=== PATIENT | female | born 1955 | race Caucasian/White ===

== ENCOUNTER 2016-06-22 15:50 | Emergency (ER) | payer OTHER ==
[~2016-06-22] VITALS: Ht 165.1 cm; Wt 52.3 kg
[~2016-06-22 15:50] MED LIST: HYDROCODONE/APAP
[2016-06-22 15:51] VITALS: BP 166/89; PULSE 99; TEMP 98.4
[2016-06-22] MEDS ORDERED: PROZAC 10MG10 MG (15:55)
[2016-06-22] MEDS ORDERED: NORCO 325 MG-51 TAB PO (15:55)
[2016-06-22] MEDS ORDERED: AMOXICILLIN 50500 MG PO (16:20)
== END 2016-06-22 16:31 | disposition home or self-care (01) ==
LOC: COL.ER 15:50
DX: L03.211 Cellulitis of face (principal)

== ENCOUNTER → 2016-07-12 | Outpatient (CLI) | payer OTHER ==
[~2016-07-12] MED LIST changes: +AMOXICILLIN 50500 MG PO; +NORCO 325 MG-51 TAB PO; +PROZAC 10MG10 MG
[2016-07-12 13:25] LABS: HEMOGLOBIN 14.6 g/dl (12.5-16.0)
[2016-07-12 13:45] LABS: ADJUSTED CALCIUM 9.3 mg/dL (8.4-10.2); ALBUMIN 4.4 gm/dL (3.5-5.0); BILIRUBIN,TOTAL 0.8 mg/dL (0.0-1.0); CALCIUM 9.6 mg/dL (8.4-10.2); CREATININE, serum 0.67 mg/dL (0.52-1.25); POTASSIUM 4.2 mmol/L (3.4-5.0); TOTAL PROTEIN 7.7 gm/dL (6.4-8.2)
[2016-07-12 14:08] LABS: THYROID STIMULATING HORMONE 1.46 uIU/mL (0.465-4.680)
== END ==
LOC: COL.VAS 12:16
DX: I34.0 Nonrheumatic mitral (valve) insufficiency (principal); Z86.19 Personal history of other infectious and parasitic diseases

== ENCOUNTER → 2017-07-09 | Outpatient (CLI) | payer SELFPAY | LOC: COL.RAD 16:17 | DX: M25.542 Pain in joints of left hand (principal); M25.532 Pain in left wrist ==